=== PATIENT | female | born 1955 | race Caucasian/White ===

== ENCOUNTER → 2024-04-27 | Outpatient (CLI) | payer MEDICARE, BC ==
[~2024-04-27] MED LIST: AZILECT1 MG PO; B-121000 MCG PO; BACTRIM DS 8001 TAB PO; BUSPAR5 MG; CARAFATE S1 GM/10 ML PO; CORTEF 10MG TAB10 MG PO; EUTHYROX125 MCG PO; FOSAMAX 70MG TA70 MG PO; IRON TABLETS325 MG PO; K-DUR20 MEQ PO; KLOR-CON SPRIN10 MEQ PO; LEADER CLE17 GM/Dose PO; MAG-OX 400400 MG/TAB PO; MEVACOR 20M20 MG/TAB PO; MIRTAZAPINE7.5 MG PO; MYCOSTATIN100000 U/1 TP; PROAMATINE 5MG T5 MG PO; PROAMATINE10 MG PO; PROTONIX40 MG/Pack PO; SINEMET 25/101 UDTAB PO; SYNTHROID0.1 MG/TAB PO; VITAMINC1000TA PO; XALATAN EYE DROPS; ZOFRAN ODT4 MG PO
== END ==
LOC: COL.RAD 07:15
DX: K30 Functional dyspepsia (principal)
CPT/HCPCS: A9541-JZ

== ENCOUNTER 2024-04-28 07:53 | Outpatient (CLI) | payer MEDICARE ==
[~2024-04-28] VITALS: Ht 157.5 cm; Wt 74.0 kg
[2024-04-28] VITALS (8 sets, daily range): BP systolic 100–145; BP diastolic 60–94; PULSE 69–83; TEMP 97.8
[~2024-04-28 07:53] MED LIST changes: -B-121000 MCG PO; -IRON TABLETS325 MG PO; -VITAMINC1000TA PO
[2024-04-28] MEDS ORDERED: IRON TABLETS325 MG PO (08:14)
[2024-04-28] MEDS ORDERED: VITAMINC1000TA PO (08:14)
[2024-04-28] MEDS ORDERED: B-121000 MCG PO (08:15)
[2024-04-28] MEDS ORDERED: PROAMATINE 5MG T5 MG PO (08:19)
[2024-04-28] MEDS ORDERED: LR 1,000 ML IV SCH (09:15)
--- NOTE | 2024-04-28 10:27 | NUR ---
Pt continues to sit up on edge of bed. She states she is comfortable and does not want to lay back in bed yet. Son remains at bedside. Both are updated that cleaner laboratory equipment is delayed in another procedure. They express understanding. Call light in reach.
[2024-04-28] MEDS ORDERED: Midazolam 2 MG/2 ML VIAL IV SCH (12:21)
[2024-04-28] MEDS ORDERED: fentaNYL 50 MCG/ML 2 ML VIAL IV SCH (12:21)
--- NOTE | 2024-04-28 13:22 | NUR ---
Dr Hammonds in to speak with pt. She is resting comfortably. She has sipped water and ate pudding cup after return from procedure. Denies pain while resting in bed. Son at bedside. Call light in reach.
--- NOTE | 2024-04-28 15:35 | NUR ---
Pt assisted up to restroom with standby assist. Gauze drain sponges around PEG tube changed due to drainage. Pt and son state this is not unusual for her to have some leaking. She is steady on feet. States she is much more comfortable with movement after procedure. Bandaid over site remains clean, dry and intact. IV DC'd, site wrapped with coban. Pt assisted out to son's car by wheelchair with belongings. She and son expressed understanding of DC instructions.
== END 2024-04-28 15:35 | disposition home or self-care (01) ==
LOC: COL.CAR 07:53
DX: M54.50 Low back pain, unspecified (principal); M48.56XA Collapsed vertebra, not elsewhere classified, lumbar region, initial encounter for fracture
CPT/HCPCS: J0665-JZ; J2250; J3010; J7120